=== PATIENT | female | born 1980 | race Hispanic/Latino ===

== ENCOUNTER 2017-09-03 20:30 | Emergency (ER) | payer MEDICARE ==
[2017-09-03 21:30] VITALS: BP 127/79
[2017-09-03] MEDS ORDERED: NACL 0.9% 1000 ML 1,000 ML IV ONE (21:30)
[2017-09-03 22:07] LABS: Basophils % (Auto) 0.2 % (0.0-1.8); Eosinophils % (Auto) 0.7 % (0.0-4.3); Hematocrit 37.2 % (30.3-42.9); Hemoglobin 12.8 gm/dl (10.1-14.3); Mean Corpuscular HGB Conc 34 % (30-34); Mean Corpuscular Hemoglobin 28 pg (28-32); Mean Corpuscular Volume 82 fl (79-97); Platelet Count 242 K/mm3 (140-440); Red Blood Count 4.56 M/mm3 (3.65-5.03); Red Cell Distribution Width 13.7 % (13.2-15.2); White Blood Count 4.3 K/mm3 (4.5-11.0)
--- NOTE | 2017-09-03 22:15 | XRay Report ---
FINAL REPORT EXAM: XR CHEST ROUTINE 2V HISTORY: CP, SOB TECHNIQUE: Two views of the chest Comparison: CTA chest 09/16/2015 FINDINGS: Normal heart size. Lungs are clear and well expanded without focal infiltrates or consolidation. The imaged axial skeleton is unremarkable. Lateral film demonstrates artifact projecting over upper chest which is not seen on the frontal in the lung apices. IMPRESSION: String like artifact projects over the upper chest on the lateral projection not appreciated on the frontal projection. No definite focal infiltrate. Normal aeration. No pneumothorax.
[2017-09-03 22:20] LABS: Partial Thromboplastin Time 31.5 Sec. (24.2-36.6)
[2017-09-03 22:32] LABS: Alanine Aminotransferase 47 units/L (7-56); Albumin 4.3 g/dL (3.9-5); Albumin/Globulin Ratio 1.5 %; Alkaline Phosphatase 60 units/L (35-129); Anion Gap 19 mmol/L; BUN/Creatinine Ratio 14; Blood Urea Nitrogen 7 mg/dL (7-17); Calcium 8.9 mg/dL (8.4-10.2); Carbon Dioxide 23 mmol/L (22-30); Glucose 126 mg/dL (65-100); Lipase 26 units/L (13-60); Potassium 3.5 mmol/L (3.6-5.0); Sodium 140 mmol/L (137-145); Total Protein 7.1 g/dL (6.3-8.2)
[2017-09-04 05:19] LABS: Bacteria,Urine 1+ /HPF (Negative); Bilirubin,Urine NEG (Negative); Blood,Urine NEG (Negative); Ketones,Urine NEG (Negative); Leukocyte Esterase,Urine NEG (Negative); Mucus,Urine 3+ /HPF; Nitrite,Urine NEG (Negative); Protein,Urine <15 mg/dL mg/dL (Negative); Urobilinogen,Urine < 2.0 mg/dL (<2.0)
== END 2017-09-03 22:50 | disposition left against medical advice (07) ==
LOC: ED 20:30
DX: R07.9 Chest pain, unspecified (principal); Z53.21 Procedure and treatment not carried out due to patient leaving prior to being seen by health care provider
CPT/HCPCS: 36415; 71020; 80053; 81001; 83690; 84484; 85025; 85379; 85610; 85730; 86850; 86870; 86900; 86901; 93005; 93010

== ENCOUNTER 2019-01-10 21:11 | Emergency (ER) | payer MEDICARE ==
[2019-01-10] MEDS ORDERED: NACL 0.9% 1000 ML 1,000 ML IV ONE (22:05)
[2019-01-10 22:43] LABS: Basophils % (Auto) 0.1 % (0.0-1.8); Eosinophils % (Auto) 0.1 % (0.0-4.3); Hematocrit 37.1 % (30.3-42.9); Lymphocytes % (Auto) 15.5 % (13.4-35.0); Mean Corpuscular HGB Conc 35 % (30-34); Mean Corpuscular Volume 82 fl (79-97); Monocytes # (Auto) 0.4 K/mm3 (0.0-0.8); Platelet Count 207 K/mm3 (140-440); Red Blood Count 4.51 M/mm3 (3.65-5.03); Red Cell Distribution Width 12.9 % (13.2-15.2)
[2019-01-10 23:01] LABS: Alanine Aminotransferase 42 units/L (7-56); BUN/Creatinine Ratio 17; Blood Urea Nitrogen 10 mg/dL (7-17); Calcium 9.1 mg/dL (8.4-10.2); Hemolysis Index 8
[2019-01-11 00:17] LABS: Bilirubin,Urine NEG (Negative); Blood,Urine SM (Negative); Color,Urine Amber (Yellow); Mucus,Urine 3+ /HPF
[2019-01-11] MEDS ORDERED: ZOFRAN IV ONE (04:14)
[2019-01-11] MEDS ORDERED: NACL 0.9% 1000 ML 1,000 ML IV ONE (04:14)
[2019-01-11] MEDS ORDERED: BENTYL IM ONE ×2 (04:14→04:17)
[2019-01-11] MEDS ORDERED: ZOFRAN ONE (04:17)
[2019-01-11] MEDS ORDERED: NACL 0.9% 1000 ML 1,000 ML ONE (04:18)
[2019-01-11] MEDS ORDERED: K-DUR PO ONE ×2 (04:45→07:22)
--- NOTE | 2019-01-11 04:54 | Emergency Department Report ---
ED Abdominal Pain HPI - General Chief Complaint: Abdominal Pain Stated Complaint: EMESIS/DIARRHEA Time Seen by Provider: 01/11/19 03:01 Source: patient Mode of arrival: Ambulatory Limitations: No Limitations - History of Present Illness Initial Comments: Patient is a 38-year-old white female presents for generalized abdominal pain nausea vomiting 4 days MD Complaint: abdominal pain Onset/Timin -: week(s) Location: [facility] Radiation: epigastric Migration to: no migration, periumbilical Severity scale (0 -10): 9 Quality: cramping, aching Consistency: constant Improves With: nothing Worsens With: nothing Associated Symptoms: nausea, vomiting - Related Data LMP Date: 01/04/17 (s/p [facility]) Home Medications Medication Instructions Recorded Confirmed Last Taken ALBUTEROL NEB's [Proventil 0.083% 2.5 mg IH TID PRN 06/23/13 12/22/15 08/30/14 NEBS] AtorvaSTATin [Lipitor] 10 mg PO DAILY 09/16/15 12/22/15 Unknown Zolpidem [Ambien] 10 mg PO QHS 09/16/15 12/22/15 Unknown Metoprolol [Lopressor TAB] 50 mg PO BID 10/01/15 12/22/15 Unknown Previous Rx's Medication Instructions Recorded Last Taken Type Cyclobenzaprine HCl [Flexeril 5 MG 5 mg PO Q8HR #12 tab 12/22/15 Unknown Rx TAB] Cimetidine (Nf) [Tagamet (Nf)] 400 mg PO BID #6 tablet 08/10/16 Unknown Rx Prednisone [predniSONE 10 mg 10 mg PO .TAPER #1 tab.ds.pk 08/10/16 Unknown Rx (6-Day Pack, 21 Tabs)] diphenhydrAMINE [Benadryl CAP] 50 mg PO QHS PRN #15 capsule 08/10/16 Unknown Rx Metoclopramide [Reglan] 10 mg PO QID PRN #12 tablet 01/11/19 Unknown Rx Naproxen 500 mg PO BID PRN #30 tablet 01/11/19 Unknown Rx Nitrofurantoin Monohyd/M-Cryst 100 mg PO BID 7 Days #14 capsule 01/11/19 Unknown Rx [Macrobid 100 mg Capsule] Potassium Chloride [K-Dur] 40 meq PO QDAY 3 Days #6 tablet 01/11/19 Unknown Rx diphenhydrAMINE [Benadryl CAP] 25 mg PO Q6HR PRN #12 capsule 01/11/19 Unknown Rx Allergies Allergy/AdvReac Type Severity Reaction Status Date / Time mustard Allergy Angioedema Verified 01/10/19 22:01 pecan nut Allergy Anaphylaxis Verified 08/10/16 17:59 strawberry Allergy Rash Verified 08/10/16 17:59 ED Review of Systems ROS: Stated complaint: EMESIS/DIARRHEA Other details as noted in HPI Constitutional: denies: chills, fever Eyes: denies: eye pain, eye discharge, vision change ENT: congestion. denies: ear pain, throat pain Respiratory: denies: cough, shortness of breath, wheezing Cardiovascular: denies: chest pain, palpitations, dyspnea on exertion, or thopnea, edema, syncope, paroxysmal nocturnal dyspnea Endocrine: no symptoms reported Gastrointestinal: denies: abdominal pain, nausea, diarrhea Genitourinary: denies: urgency, dysuria, frequency, hematuria, discharge, abnorm al menses Musculoskeletal: denies: back pain, joint swelling, arthralgia Skin: denies: rash, lesions Neurological: denies: headache, weakness, paresthesias, vertigo Psychiatric: denies: anxiety, depression Hematological/Lymphatic: denies: easy bleeding, easy bruising ED Past Medical Hx - Past Medical History Hx Hypertension: No Hx Heart Attack/AMI: No Hx Diabetes: Yes Hx Deep Vein Thrombosis: Yes (RIGHT LOWER LEG 2002.) Hx GERD: Yes Hx Renal Disease: No Hx Seizures: Yes (CURRENTLY BEING EVALUATED FOR SEIZURES/migraines) Hx Psychiatric Treatment: Yes (bipolar, ANXIETY) Hx Asthma: Yes Hx COPD: No Additional medical history: Chronic pelvic pain; left ovarian cyst. "enlarged heart". "irregular heart rate" - Surgical History Hx Coronary Stent: No Hx Pacemaker: No Hx Cholecystectomy: Yes Hx Appendectomy: Yes Additional Surgical History: Left knee surgery, sinus windows. cyst removal (left ovary). HYSTERECTOMY. RIGHT KNEE SURGERY - Social History Smoking Status: Never Smoker - Medications Home Medications: Home Medications Medication Instructions Recorded Confirmed Last Taken Type ALBUTEROL NEB's [Proventil 0.083% 2.5 mg IH TID PRN 06/23/13 12/22/15 08/30/14 History NEBS] AtorvaSTATin [Lipitor] 10 mg PO DAILY 09/16/15 12/22/15 Unknown History Zolpidem [Ambien] 10 mg PO QHS 09/16/15 12/22/15 Unknown History Metoprolol [Lopressor TAB] 50 mg PO BID 10/01/15 12/22/15 Unknown History Cyclobenzaprine HCl [Flexeril 5 MG 5 mg PO Q8HR #12 tab 12/22/15 Unknown Rx TAB] Cimetidine (Nf) [Tagamet (Nf)] 400 mg PO BID #6 tablet 08/10/16 Unknown Rx Prednisone [predniSONE 10 mg 10 mg PO .TAPER #1 tab.ds.pk 08/10/16 Unknown Rx (6-Day Pack, 21 Tabs)] diphenhydrAMINE [Benadryl CAP] 50 mg PO QHS PRN #15 capsule 08/10/16 Unknown Rx Metoclopramide [Reglan] 10 mg PO QID PRN #12 tablet 01/11/19 Unknown Rx Naproxen 500 mg PO BID PRN #30 tablet 01/11/19 Unknown Rx Nitrofurantoin Monohyd/M-Cryst 100 mg PO BID 7 Days #14 capsule 01/11/19 Unknown Rx [Macrobid 100 mg Capsule] Potassium Chloride [K-Dur] 40 meq PO QDAY 3 Days #6 tablet 01/11/19 Unknown Rx diphenhydrAMINE [Benadryl CAP] 25 mg PO Q6HR PRN #12 capsule 01/11/19 Unknown Rx ED Physical Exam - General Limitations: No Limitations General appearance: alert, in no apparent distress - Head Head exam: Present: atraumatic, normocephalic - Eye Eye exam: Present: normal appearance, PERRL, EOMI Pupils: Present: normal accommodation - ENT ENT exam: Present: mucous membranes moist, TM's normal bilaterally, normal external ear exam. Absent: normal orophraynx - Neck Neck exam: Present: full ROM. Absent: lymphadenopathy, thyromegaly - Respiratory Respiratory exam: Present: normal lung sounds bilaterally, chest wall tenderness. Absent: respiratory distress, wheezes, rhonchi, stridor - Cardiovascular Cardiovascular Exam: Present: regular rate, normal rhythm, normal heart sounds - GI/Abdominal GI/Abdominal exam: Present: soft, normal bowel sounds, pulsatile mass. Absent: distended, tenderness, guarding, mass - Rectal Rectal exam: Present: deferred - External exam: Present: bleeding (deferred per patioent) - Extremities Exam Extremities exam: Present: normal inspection - Back Exam Back exam: Present: normal inspection, full ROM, rash noted. Absent: te nderness, CVA tenderness (R), CVA tenderness (L) - Neurological Exam Neurological exam: Present: alert, oriented X3, CN II-XII intact, normal gait, reflexes normal. Absent: motor sensory deficit - Psychiatric Psychiatric exam: Present: normal affect, normal mood - Skin Skin exam: Present: warm, dry, intact, normal color. Absent: rash ED Course Vital Signs 01/10/19 01/10/19 01/10/19 21:54 22:03 22:04 Temperature 98.4 F 98.4 F 98.4 F Pulse Rate 102 H 103 H 103 H Respiratory 18 18 18 Rate Blood Pressure 128/90 128/90 Blood Pressure 128/90 [Left] O2 Sat by Pulse 99 99 99 Oximetry ED Medical Decision Making - Lab Data Result diagrams: 01/10/19 22:19 01/10/19 22:19 Labs 01/10/19 01/10/19 01/10/19 22:19 22:19 23:50 WBC 6.7 RBC 4.51 Hgb 13.0 Hct 37.1 MCV 82 MCH 29 MCHC 35 H RDW 12.9 L Plt Count 207 Lymph % (Auto) 15.5 Isabella % (Auto) 6.0 Eos % (Auto) 0.1 Baso % (Auto) 0.1 Lymph # 1.0 L Isabella # 0.4 Eos # 0.0 Baso # 0.0 Seg Neutrophils % 78.3 H Seg Neutrophils # 5.3 Sodium 135 L Potassium 3.0 L Chloride 96.3 L Carbon Dioxide 25 Anion Gap 17 BUN 10 Creatinine 0.6 L Estimated GFR > 60 BUN/Creatinine Ratio 17 Glucose 101 H Calcium 9.1 Total Bilirubin 0.80 AST 27 ALT 42 Alkaline Phosphatase 68 Total Protein 7.6 Albumin 4.0 Albumin/Globulin Ratio 1.1 Lipase 26 Urine Color Ruby Urine Turbidity Cloudy Urine pH 5.0 Ur Specific [place] 1.040 H Urine Protein 100 mg/dl Urine Glucose (UA) Neg Urine Ketones 80 Urine Blood Sm Urine Nitrite Neg Urine Bilirubin Neg Urine Urobilinogen 2.0 Ur Leukocyte Esterase Neg Urine WBC (Auto) 10.0 H Urine RBC (Auto) 6.0 U Epithel Cells (Auto) 10.0 Urine Mucus 3+ - Medical Decision Making Abdominal pain is resolved symptoms are improved EKG normal sinus rhythm and no inverted T waves patient tolerating by mouth at this time patient given K-Dur 40 mEq every 2 hours 2 doses there is no cp no sob no nausea vomiting at this time, plan: dc to home with rx for reglan, benadryl, naproxen, kdur follow up with pcp in 2-3 days continue to hydrate at home return to ed if syptom worsen, pt verbalized agreement and understanding of discharge plan. Critical care attestation.: If time is entered above; I have spent that time in minutes in the direct care of this critically ill patient, excluding procedure time. ED Disposition Clinical Impression: Mild dehydration Nausea and vomiting Qualifiers: Vomiting type: unspecified Vomiting Intractability: non-intractable Qualified Code(s): R11.2 - Nausea with vomiting, unspecified UTI (urinary tract infection) Qualifiers: Urinary tract infection type: acute cystitis Hematuria presence: without hematuria Qualified Code(s): N30.00 - Acute cystitis without hematuria Disposition: DC-01 TO HOME OR SELFCARE Is pt being admited?: No Does the pt Need Aspirin: No Condition: Stable Instructions: Abdominal Pain (ED), Urinary Tract Infection in Women (ED), Dehydration (ED) Prescriptions: diphenhydrAMINE [Benadryl CAP] 25 mg PO Q6HR PRN #12 capsule PRN Reason: Nausea And Vomiting Potassium Chloride [K-Dur] 40 meq PO QDAY 3 Days #6 tablet Nitrofurantoin Monohyd/M-Cryst [Macrobid 100 mg Capsule] 100 mg PO BID 7 Days #14 capsule Naproxen 500 mg PO BID PRN #30 tablet PRN Reason: pain Metoclopramide [Reglan] 10 mg PO QID PRN #12 tablet PRN Reason: nausea and vomiting Referrals: JENI SEN MD [Primary Care Provider] - 3-5 Days SANTIAGO HSU MD [Staff Physician] - 3-5 Days Forms: Work/School Release Form(ED) Time of Disposition: 07:30
[2019-01-11] MEDS ORDERED: D5NS 1,000 ML IV SCH (05:00)
[2019-01-11 08:17] VITALS: BP 140/90
== END 2019-01-11 08:01 | disposition home or self-care (01) ==
LOC: ED 21:11
DX: N39.0 Urinary tract infection, site not specified (principal); E86.0 Dehydration; E11.9 Type 2 diabetes mellitus without complications; J45.909 Unspecified asthma, uncomplicated; K21.9 Gastro-esophageal reflux disease without esophagitis; F31.9 Bipolar disorder, unspecified; F41.9 Anxiety disorder, unspecified; Z86.718 Personal history of other venous thrombosis and embolism; Z90.89 Acquired absence of other organs; Z90.710 Acquired absence of both cervix and uterus; Z98.890 Other specified postprocedural states; Z91.018 Allergy to other foods
CPT/HCPCS: 36415; 80053; 81001; 83690; 85025; 93005; 93010; 96361; 96372; 96374; 99283; J0500; J2405; J7030